=== PATIENT | male | born 1930 | race Caucasian/White ===

== ENCOUNTER 2019-02-26 10:31 | Inpatient (IN) | payer MEDICARE ==
[~2019-02-26] VITALS: Ht 170.2 cm; Wt 68.9 kg
[2019-02-26] MEDS ORDERED: AMLO10TA4 PO (10:39)
[2019-02-26] MEDS ORDERED: ASCO500P18 PO (10:39)
[2019-02-26] MEDS ORDERED: FERR325T28 PO (10:39)
[2019-02-26] MEDS ORDERED: FLUORESCEIN SODIUM 1 MG STRIP ONE (10:44)
[2019-02-26] MEDS ORDERED: TETRACAINE HCL 0.5% OPHT DROP 2 ML BOTTLE ONE (10:45)
[2019-02-26 10:58] LABS: BASOPHILS % (AUTO) 0.7 % (0.0-2.0); EOSINOPHILS % (AUTO) 0.4 % (0.0-7.0); HEMOGLOBIN 17.3 g/dL (12.5-16.3); LYMPHOCYTES % (AUTO) 19.6 % (20.5-51.5); MEAN CORPUSCULAR HEMOGLOBIN 32.5 uug (23.8-33.4); MEAN CORPUSCULAR HGB CONC 34 g/dL (32.5-36.3); MEAN CORPUSCULAR VOLUME 95.8 fL (73.0-96.2); MONOCYTES # (AUTO) 0.7 K/uL (2.0-10.0); MONOCYTES % (AUTO) 13.2 % (0.0-11.0); NEUTROPHILS # (AUTO) 3.5 K/uL (1.8-8.9); NEUTROPHILS % (AUTO) 66.1 % (38.5-71.5); PLATELET COUNT (AUTO) 158 K/uL (152-348); RED BLOOD CELL COUNT(AUTO) 5.32 MIL/uL (4.06-5.63); WHITE BLOOD COUNT (AUTO) 5.3 K/uL (3.6-10.2)
[2019-02-26] MEDS ORDERED: PIPERACILLIN SODIUM/TAZOBACTAM 3.375 G in IV DEXTROSE 5% 50 ML IV ONE (11:00)
[2019-02-26] MEDS ORDERED: VANCOMYCIN IV 1,000 MG in IV DEXTROSE 5% 250 ML IV ONE (11:00)
[2019-02-26] MEDS ORDERED: FLUORESCEIN SODIUM 1 MG STRIP OP ONE (11:00)
[2019-02-26] MEDS ORDERED: TETRACAINE HCL 0.5% OPHT DROP 2 ML BOTTLE OP ONE (11:00)
[2019-02-26 11:07] LABS: CREATININE 1.3 mg/dL (0.6-1.3); POTASSIUM 4.4 mmol/L (3.5-5.1)
[2019-02-26] MEDS ORDERED: PIPERACILLIN/TAZOBACTAM/D5W 50 ML IV ONE (11:11)
[2019-02-26 11:13] LABS: BILIRUBIN,DIRECT 0.4 mg/dL (0.0-0.2); BILIRUBIN,TOTAL 1.3 mg/dL (0.2-1.0); TOTAL PROTEIN, SERUM 7.7 g/dL (6.4-8.2)
[2019-02-26] MEDS ORDERED: VANCOMYCIN IV 200 ML ONE (11:51)
[2019-02-26 13:40] VITALS: BP 175/88
[2019-02-26] MEDS: POTASSIUM CHLORIDE 10 MEQ in IV 1/2NS 1000 ML 1,000 ML IV PRN (15:25)
[2019-02-26 15:45] VITALS: BP 160/80
[2019-02-26] MEDS: PIPERACILLIN/TAZO 2.25 G in IV DEXTROSE 5% 50 ML IV SCH (18:31)
[2019-02-26 19:43] VITALS: BP 150/74
[2019-02-27] MEDS: PIPERACILLIN/TAZO 2.25 G in IV DEXTROSE 5% 50 ML IV SCH ×4 (00:30→17:50)
[2019-02-27 04:47] VITALS: BP 136/70
[2019-02-27] MEDS: ASCORBIC ACID 500 MG TABLET PO SCH (08:19)
[2019-02-27] MEDS: AMLODIPINE 10 MG TABLET PO SCH (08:19)
[2019-02-27] MEDS: FERROUS SULFATE 325 MG TABEC PO SCH (08:19)
[2019-02-27] MEDS ORDERED: Medication Not On Formulary EA (Ascorbic Acid (Vitamin C) 500 MG) PO SCH (09:00)
[2019-02-27] MEDS: POTASSIUM CHLORIDE 10 MEQ in IV 1/2NS 1000 ML 1,000 ML IV PRN (10:41)
[2019-02-27] MEDS ORDERED: VANCOMYCIN IV 1,000 MG in IV DEXTROSE 5% 250 ML IV SCH (11:00)
[2019-02-27 11:02] VITALS: BP 156/76
[2019-02-27 15:02] VITALS: BP 125/62
[2019-02-27 20:00] VITALS: BP 158/77
[2019-02-27] MEDS: ACYCLOVIR 200 MG CAPSULE PO SCH (20:24)
[2019-02-27] MEDS: CLINDAMYCIN PHOSPHATE IV 600 MG in IV DEXTROSE 5% 100 ML IV SCH (21:44)
[2019-02-27] MEDS ORDERED: ACYCLOVIR IV 500 MG in IV DEXTROSE 5% 100 ML IV SCH (22:00)
[2019-02-28] MEDS: CLINDAMYCIN PHOSPHATE IV 600 MG in IV DEXTROSE 5% 100 ML IV SCH ×3 (05:02→21:37)
[2019-02-28] MEDS: POTASSIUM CHLORIDE 10 MEQ in IV 1/2NS 1000 ML 1,000 ML IV PRN (05:02)
[2019-02-28 05:22] VITALS: BP 130/57
[2019-02-28 06:35] LABS: BASOPHILS % (AUTO) 0.4 % (0.0-2.0); EOSINOPHILS # (AUTO) 0.1 K/uL (0.0-0.7); EOSINOPHILS % (AUTO) 1.6 % (0.0-7.0); HEMATOCRIT 43.7 % (36.7-47.1); HEMOGLOBIN 15.1 g/dL (12.5-16.3); LYMPHOCYTES # (AUTO) 1.4 K/uL (20.0-40.0); MEAN CORPUSCULAR HEMOGLOBIN 31.9 uug (23.8-33.4); MEAN CORPUSCULAR HGB CONC 35 g/dL (32.5-36.3); MEAN CORPUSCULAR VOLUME 92.3 fL (73.0-96.2); MONOCYTES # (AUTO) 0.8 K/uL (2.0-10.0); MONOCYTES % (AUTO) 12.2 % (0.0-11.0); NEUTROPHILS # (AUTO) 3.9 K/uL (1.8-8.9); NEUTROPHILS % (AUTO) 62.8 % (38.5-71.5); PLATELET COUNT (AUTO) 165 K/uL (152-348); RED BLOOD CELL COUNT(AUTO) 4.74 MIL/uL (4.06-5.63); WHITE BLOOD COUNT (AUTO) 6.3 K/uL (3.6-10.2)
[2019-02-28 08:15] LABS: CREATININE 1.1 mg/dL (0.6-1.3); MAGNESIUM 1.8 mg/dL (1.8-2.4); PHOSPHOROUS 3.2 mg/dL (2.5-4.9); POTASSIUM 3.8 mmol/L (3.5-5.1)
[2019-02-28] MEDS: FERROUS SULFATE 325 MG TABEC PO SCH (08:45)
[2019-02-28] MEDS: AMLODIPINE 10 MG TABLET PO SCH (08:48)
[2019-02-28] MEDS: ASCORBIC ACID 500 MG TABLET PO SCH (08:48)
[2019-02-28] MEDS: ACYCLOVIR 200 MG CAPSULE PO SCH ×3 (08:49→17:25)
[2019-02-28] MEDS ORDERED: ACYCLOVIR 200 MG CAPSULE PO SCH (09:00)
[2019-02-28 11:16] VITALS: BP 155/78
[2019-02-28 15:04] VITALS: BP 144/72
[2019-02-28 20:02] VITALS: BP 124/58
[2019-03-01] MEDS: CLINDAMYCIN PHOSPHATE IV 600 MG in IV DEXTROSE 5% 100 ML IV SCH ×3 (05:11→21:22)
[2019-03-01] MEDS: POTASSIUM CHLORIDE 10 MEQ in IV 1/2NS 1000 ML 1,000 ML IV PRN (05:12)
[2019-03-01 06:15] VITALS: BP 130/77
[2019-03-01] MEDS: ASCORBIC ACID 500 MG TABLET PO SCH (09:03)
[2019-03-01] MEDS: FERROUS SULFATE 325 MG TABEC PO SCH (09:03)
[2019-03-01] MEDS: AMLODIPINE 10 MG TABLET PO SCH (09:04)
[2019-03-01] MEDS: ACYCLOVIR 200 MG CAPSULE PO SCH ×3 (09:05→18:00)
[2019-03-01] MEDS: CIPROFLOXACIN 0.3% OPHT DROP 2.5 ML BOTTLE EACHEYE SCH ×2 (09:05→18:00)
[2019-03-01 11:04] VITALS: BP 122/68
[2019-03-01 15:02] VITALS: BP 132/65
[2019-03-01 19:45] VITALS: BP 144/54
[2019-03-02] MEDS: POTASSIUM CHLORIDE 10 MEQ in IV 1/2NS 1000 ML 1,000 ML IV PRN (02:22)
[2019-03-02 05:04] VITALS: BP 117/83
[2019-03-02] MEDS: CLINDAMYCIN PHOSPHATE IV 600 MG in IV DEXTROSE 5% 100 ML IV SCH ×3 (06:00→20:13)
[2019-03-02 06:48] LABS: BASOPHILS % (AUTO) 0.7 % (0.0-2.0); EOSINOPHILS # (AUTO) 0.3 K/uL (0.0-0.7); EOSINOPHILS % (AUTO) 4.8 % (0.0-7.0); HEMATOCRIT 43.8 % (36.7-47.1); HEMOGLOBIN 15.1 g/dL (12.5-16.3); LYMPHOCYTES # (AUTO) 1.7 K/uL (20.0-40.0); LYMPHOCYTES % (AUTO) 31.4 % (20.5-51.5); MEAN CORPUSCULAR HEMOGLOBIN 32.1 uug (23.8-33.4); MEAN CORPUSCULAR HGB CONC 35 g/dL (32.5-36.3); MEAN CORPUSCULAR VOLUME 93.2 fL (73.0-96.2); MONOCYTES # (AUTO) 0.4 K/uL (2.0-10.0); MONOCYTES % (AUTO) 7.1 % (0.0-11.0); NEUTROPHILS # (AUTO) 3.1 K/uL (1.8-8.9); PLATELET COUNT (AUTO) 181 K/uL (152-348); WHITE BLOOD COUNT (AUTO) 5.5 K/uL (3.6-10.2)
[2019-03-02 06:49] LABS: BILIRUBIN,TOTAL 0.8 mg/dL (0.2-1.0); CREATININE 0.9 mg/dL (0.6-1.3); MAGNESIUM 1.9 mg/dL (1.8-2.4); POTASSIUM 4.3 mmol/L (3.5-5.1); TOTAL PROTEIN, SERUM 6.6 g/dL (6.4-8.2)
[2019-03-02] MEDS: AMLODIPINE 10 MG TABLET PO SCH (08:41)
[2019-03-02] MEDS: FERROUS SULFATE 325 MG TABEC PO SCH (08:41)
[2019-03-02] MEDS: ASCORBIC ACID 500 MG TABLET PO SCH (08:41)
[2019-03-02] MEDS: CIPROFLOXACIN 0.3% OPHT DROP 2.5 ML BOTTLE EACHEYE SCH ×2 (08:42→17:57)
[2019-03-02] MEDS: ACYCLOVIR 200 MG CAPSULE PO SCH ×3 (09:33→17:57)
[2019-03-02 12:02] VITALS: BP 134/71
[2019-03-02] MEDS ORDERED: ACYC200C PO (14:27)
[2019-03-02] MEDS ORDERED: CLIN600P2 IV (14:27)
[2019-03-02] MEDS ORDERED: CIPR2.5D11 EACHEYE (14:27)
[2019-03-02] MEDS ORDERED: ASCO500T9 PO (14:27)
[2019-03-02] MEDS ORDERED: ACID1TAB4 PO (14:27)
[2019-03-02 16:05] VITALS: BP 127/98
[2019-03-02 20:00] VITALS: BP 134/75
== END 2019-03-02 21:50 | DRG 603 ==
LOC: ER 10:31 → EDBD 10:31 → MEDSURG3 13:20
PROVIDERS: ADMIT Internal Medicine; ATTEND Internal Medicine
PROC: 05HB33Z Insertion of Infusion Device into Right Basilic Vein, Percutaneous Approach (ICD-10-PCS; principal; 2019-03-02)
DX: L03.211 Cellulitis of face (principal); B02.30 Zoster ocular disease, unspecified; E87.1 Hypo-osmolality and hyponatremia; N17.9 Acute kidney failure, unspecified; F03.90 Unspecified dementia, unspecified severity, without behavioral disturbance, psychotic disturbance, mood disturbance, and anxiety; I11.9 Hypertensive heart disease without heart failure
CPT/HCPCS: 36415; 70030-TC; 70486; 71045; 83605; 83735; 84100; 85025; 85730; 87040; 93005; A4663; G0378; J2543; J3370; J3480; J3490; J7060

== ENCOUNTER 2019-09-15 11:28 | Emergency (ER) | payer MEDICARE ==
[~2019-09-15] VITALS: Ht 170.2 cm; Wt 68.0 kg
[~2019-09-15 11:28] MED LIST: ACID1TAB4 PO; ACYC200C PO; AMLO10TA4 PO; ASCO500P18 PO; ASCO500T20 PO; CIPR2.5D11 EACHEYE; CLIN600P2 IV; FERR325T28 PO
--- NOTE | 2019-09-15 11:30 | NUR ---
Dr. Figueroa at bedside for MSE
--- NOTE | 2019-09-15 11:35 | NUR ---
Patient BIB [facility] via [facility]. Patient able to ambulate to bed with assistance. A &O x3. c/o low back pain. per report, patient fell 2x last week. no visible injuries noted. Patient able to move extremities freely. Speech is clear and able to make needs known / follow commands. Breathing even and unlabored. no cough or SOB noted. Denies any RUIZ, N / V / D. Safety precautions implemented. bed low, s/r up x2
--- NOTE | 2019-09-15 11:55 | NUR ---
Xray at bedside
[2019-09-15] MEDS ORDERED: INSU100V39 SQ (12:01)
[2019-09-15] MEDS ORDERED: CLON0.5T4 PO (12:01)
[2019-09-15] MEDS ORDERED: CLOP75TA15 PO (12:01)
[2019-09-15] MEDS ORDERED: INSU3INS6 SQ (12:01)
[2019-09-15] MEDS ORDERED: LORA-258 PO (12:01)
[2019-09-15] MEDS ORDERED: DIVA250T4 PO (12:01)
--- NOTE | 2019-09-15 12:25 | NUR ---
Called [facility] to return patient to [facility] with Trip number [id number] with an ETA of [id number]
--- NOTE | 2019-09-15 13:23 | NUR ---
Patient discharged to home in stable condition. Written and verbal after care instructions given. . Stressed follow up or return to ER for worsening s/s. Patient picked up by [facility] in stable condition via [facility]
[2019-09-15 13:24] VITALS: BP 123/64
== END 2019-09-15 13:23 ==
LOC: ER 11:28
DX: S30.0XXA Contusion of lower back and pelvis, initial encounter (principal); W18.30XA Fall on same level, unspecified, initial encounter; Y92.099 Unspecified place in other non-institutional residence as the place of occurrence of the external cause; F03.90 Unspecified dementia, unspecified severity, without behavioral disturbance, psychotic disturbance, mood disturbance, and anxiety
CPT/HCPCS: 72100; 72220; A4663